=== PATIENT | male | born 1955 | race Caucasian/White ===

== ENCOUNTER 2018-04-28 15:52 | Emergency (ER) | payer SELFPAY ==
[2018-04-28] MEDS ORDERED: ONDANSETRON 4 MG/2 ML VIAL ONE (16:01)
[2018-04-28] MEDS ORDERED: FENTANYL CITR 100 MCG/2 ML ONE (16:01)
[2018-04-28 16:16] LABS: Absolute Lymphocytes (CBC) 2.8 K/uL (0.7-4.9); Absolute Monocytes 0.9 K/uL (0.1-1.3); Absolute Neutrophil 10.3 K/uL (1.8-8.0); Basophils % 0.4 % (0-1.3); Eosinophils % 0.7 % (0-4.4); Hematocrit 45.4 % (39.6-49.0); Lymphocytes % 19.5 % (15.3-44.8); MCH 32.1 pg (27.0-35.0); MCV 94.3 fL (80-100); MPV 7.9 fL (7.6-11.3); Monocytes % 6.6 % (3.3-12.3); RBC Red Blood Cell Count 4.81 M/uL (4.33-5.43)
[2018-04-28 16:38] LABS: Bilirubin Direct 0.1 mg/dL (0-0.2); Bilirubin Total 0.5 mg/dL (0.3-1.2); Magnesium 1.7 mg/dL (1.8-2.5); Protein, Total 7.1 g/dL (6.0-8.3)
[2018-04-28 16:41] LABS: CKMB Creatine Kinase MB 3.1 ng/ml (0.3-4.0)
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
--- NOTE | 2018-04-28 17:00 | EKG ---
Test Date: 2018-04-28 Test Time: 16:29:22 Machine I Cutter: LENO MEASUREMENT RESULTS: Intervals: Rate: 91 [place]: 146 QRSD: 76 QT: 370 QTc: 455 [place]: P: 43 [place]: 146 QRS: 14 T: 60 INTERPRETIVE STATEMENTS: Normal sinus rhythm Anteroseptal infarct, age undetermined Abnormal ECG No previous ECG available for comparison Electronically Signed On 04-28-18 16:59:43 CDT by Nazario Bowers
[2018-04-28] MEDS ORDERED: NA CHLORIDE 0.9% 2,000 ML ONE (17:20)
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
== END 2018-04-28 17:44 | disposition short-term general hospital (02) ==
LOC: EDBD 15:52 → ER 15:52
DX: S32.810A Multiple fractures of pelvis with stable disruption of pelvic ring, initial encounter for closed fracture (principal); S22.43XA Multiple fractures of ribs, bilateral, initial encounter for closed fracture; E83.42 Hypomagnesemia; X58.XXXA Exposure to other specified factors, initial encounter; Y93.89 Activity, other specified; Y92.9 Unspecified place or not applicable
CPT/HCPCS: 36415; 70450; 71045; 71260; 72125; 72170; 74177; 80048; 80076; 82550; 82553; 83690; 83735; 83880; 84484; 85025; 86850; 86900; 86901; 93005; 99285; J2405; J3010; J7030; Q9967

== ENCOUNTER 2021-01-06 11:51 | Inpatient (IN) | payer SELFPAY ==
[2021-01-06] MEDS ORDERED: IPRATROPIUM BROM 0.5MG/2.5ML ONE (12:33)
[2021-01-06] MEDS ORDERED: ALBUTEROL 2.5 MG/3 ML NEB SOL ONE (12:34)
[2021-01-06] MEDS ORDERED: dexAMETHasone 10 MG/ML VIAL ONE (12:44)
[2021-01-06 12:52] LABS: Basophils % 0.3 % (0-1.3); Hematocrit 41.7 % (39.6-49.0); Lymphocytes % 7.8 % (15.3-44.8); MPV 8.7 fL (7.6-11.3)
[2021-01-06 12:57] LABS: Protime INR 1.15
[2021-01-06 13:21] LABS: Albumin 2.8 g/dL (3.4-5.0); Bilirubin Direct 0.1 mg/dL (0-0.2); Bilirubin Total 0.4 mg/dL (0.2-1.0); Ferritin 1475.9 ng/mL (26-388); Potassium 4.1 mmol/L (3.5-5.1); Protein, Total 7.6 g/dL (6.4-8.2); Troponin (Emerg Dept Use Only) 0.08 ng/mL (0.0-0.045)
[2021-01-06 13:36] LABS: Blood Morphology Comment NOT SEEN (NOT SEEN); Platelet Estimate ADEQ; White Blood Cell Scan OK (OK)
[2021-01-06 13:38] LABS: SARS-COV-2 RT PCR POSITIVE (NEGATIVE)
--- NOTE | 2021-01-06 13:49 | RAD REPORT ---
EXAM DESCRIPTION: RAD - Chest Single View - 01/06/2021 1:30 pm CLINICAL HISTORY: Cough;Dyspnea Chest pain. COMPARISON: Chest Single View dated 04/28/2018 FINDINGS: Portable technique limits examination quality. Moderate patchy opacities in both lungs likely related to viral infection. The heart is normal in siz e. No displaced fractures.
--- NOTE | 2021-01-06 14:00 | RAD REPORT ---
EXAM DESCRIPTION: CT - Chest For Pe Angio - 01/06/2021 1:47 pm CLINICAL HISTORY: Chest pain. DYSPNEA COMPARISON: Head C Spine Cap W Con dated 04/28/2018 TECHNIQUE: CT angiogram of the pulmonary arteries was performed with MIP. All CT scans are performed using dose optimization technique as appropriate and may include automated exposure control or mA/KV adjustment according to patient size. FINDINGS: No evidence of pulmonary thromboembolism. No acute aortic finding demonstrated. Extensive alveolar and interstitial lung opacities are present throughout both lungs which may repres ent pulmonary edema or viral infection/ pneumonia. No significant pericardial or pleural fluid. No concerning bony finding. IMPRESSION: No evidence of pulmonary thromboembolism. Extensive bilateral alveolar and interstitial lung opacities are present which may be secondary to vi ral infection/ pneumonia or pulmonary edema.
--- NOTE | 2021-01-06 14:09 | EDPHYS ---
Physician Documentation [facility] Name: Yasmany Jaquez Age: 65 yrs Sex: Male : 1955 Arrival Date: 01/06/2021 Time: 11:52 Bed 2 Private MD: ED Physician Kieran Lewis HPI: 01/06 14:16 This 65 yrs old Male presents to ER via Wheelchair with complaints of kb Shortness Of Breath. 14:16 The patient has shortness of breath at rest. Onset: The symptoms/episode began/occurred kb 1 week(s) ago, and became worse today. Duration: The symptoms are continuous. The patient's shortness of breath is aggravated by nothing, is alleviated by application of supplemental oxygen. Associated signs and symptoms: Pertinent positives: non-productive cough, fever. Severity of symptoms: At their worst the symptoms were moderate in the emergency department the symptoms are unchanged. The patient has not experienced similar symptoms in the past. The patient has not recently seen a physician. 14:17 Pt started having shortness of breath and cough a week ago. Started Ivermectin, kb decadron and vitamins 5 days ago. Close family members recently had covid, but pt was not tested. shortness of breath worse today. Historical: - Allergies: 12:06 No Known Allergies; aa5 - Home Meds: 12:06 None [Active]; aa5 - PMHx: 12:06 None; aa5 - PSHx: 12:06 pelvis fracture; aa5 - Immunization history:: Adult Immunizations up to date. - Social history:: Smoking status: Patient denies any tobacco usage or history of. ROS: 14:15 Cardiovascular: Negative for chest pain, palpitations, and edema, Abdomen/GI: Negative kb for abdominal pain, nausea, vomiting, diarrhea, and constipation, Back: Negative for injury and pain, MS/Extremity: Negative for injury and deformity, Skin: Negative for injury, rash, and discoloration, Neuro: Negative for headache, weakness, numbness, tingling, and seizure. 14:15 Constitutional: Positive for fever, malaise. 14:15 Respiratory: Positive for cough, dyspnea on exertion, shortness of breath. Exam: 14:15 Head/Face: Normocephalic, atraumatic. Chest/axilla: Normal chest wall appearance and kb motion. Nontender with no deformity. No lesions are appreciated. Cardiovascular: Regular rate and rhythm with a normal S1 and S2. No gallops, murmurs, or rubs. Normal PMI, no JVD. No pulse deficits. Abdomen/GI: Soft, non-tender, with normal bowel sounds. No distension or tympany. No guarding or rebound. No evidence of tenderness throughout. Back: No spinal tenderness. No costovertebral tenderness. Full range of motion. Skin: Warm, dry with normal turgor. Normal color with no rashes, no lesions, and no evidence of cellulitis. MS/ Extremity: Pulses equal, no cyanosis. Neurovascular intact. Full, normal range of motion. Neuro: Awake and alert, GCS 15, oriented to person, place, time, and situation. Cranial nerves II-XII grossly intact. Motor strength 5/5 in all extremities. Sensory grossly intact. Cerebellar exam normal. Normal gait. 14:15 Respiratory: mild respiratory distress is noted, Respirations: labored breathing, that is moderate, Breath sounds: decreased breath sounds, that are mild, that are moderate, are located in both bases. Vital Signs: 11:57 BP 174 / 92; Pulse 116; Resp 40; Pulse Ox 81% on R/A; Weight 117.93 kg; Height 5 ft. 10 hb in. (177.80 cm); Pain 0/10; 13:30 BP 137 / 87; Pulse 108; Resp 25; Pulse Ox 92% on 3 lpm NC; jl7 14:00 BP 120 / 83; Pulse 106; Resp 30; Pulse Ox 94% on 2 lpm NC; hb 15:15 BP 117 / 76; Pulse 89; Resp 27; Pulse Ox 93% on 3 lpm NC; hb 16:23 Temp 98.6(O); dh3 16:30 BP 116 / 62; Pulse 93; Resp 26; Pulse Ox 94% on 3 lpm NC; hb 17:30 BP 142 / 91; Pulse 96; Resp 28; Pulse Ox 94% on 3 lpm NC; hb 18:25 BP 138 / 88; Pulse 94; Resp 27; Pulse Ox 90% 3 lpm ; hb 19:18 BP 94 / 60; Pulse 85; Resp 22; Pulse Ox 99% 3 lpm ; ea 19:30 BP 146 / 82; Pulse 82; Resp 26; Temp 98.3; Pulse Ox 97% 3 lpm ; mg2 11:57 Body Mass Index 37.30 (117.93 kg, 177.80 cm) hb MDM: 12:08 Patient medically screened. kb 13:44 Data reviewed: vital signs, nurses notes. Data interpreted: Pulse oximetry: on room air kb is 81 %. Interpretation: hypoxia. Plan: O2 by NC applied. ED course: Pt's oxygen sat 81% on room air, placed on 4L O2 via NC in triage and sats increased to 98-99%. 14:07 Counseling: I had a detailed discussion with the patient and/or guardian regarding: the kb historical points, exam findings, and any diagnostic results supporting the discharge/admit diagnosis, lab results, radiology results, the need for further work-up and treatment in the hospital. Physician consultation: Talia Delgado MD was contacted at 14:07, regarding admission, to the telemetry unit. patient's condition, and will see patient in ED. 14:14 ED course: Pt sitting on side of bed, breathing is less labored. Pt reports he is kb breathing easier. 01/06 12:15 Order name: Blood Culture Adult (2) kb 01/06 12:15 Order name: BMP kb 01/06 12:15 Order name: C-Reactive Protein kb 01/06 12:15 Order name: CBC with Diff kb 01/06 12:15 Order name: D-Dimer kb 01/06 12:15 Order name: Ferritin kb 01/06 12:15 Order name: Lactate; Complete Time: 13:07 kb 01/06 12:15 Order name: LFT's; Complete Time: 13:22 kb 01/06 12:15 Order name: Lipase; Complete Time: 13:22 kb 01/06 12:15 Order name: Procalcitonin; Complete Time: 13:23 kb 01/06 12:15 Order name: PT-INR; Complete Time: 13:00 kb 01/06 12:15 Order name: Ptt, Activated; Complete Time: 13:00 kb 01/06 12:15 Order name: Troponin (emerg Dept Use Only); Complete Time: 13:22 kb 01/06 12:15 Order name: CXR XRAY; Complete Time: 13:54 kb 01/06 12:15 Order name: Blood Culture EDMS 01/06 12:15 Order name: Basic Metabolic Panel; Complete Time: 13:22 EDMS 02 12:15 Order name: C-Reactive Protein; Complete Time: 13:22 EDMS 02 12:15 Order name: CBC with Automated Diff; Complete Time: 13:44 EDMS 01/06 12:15 Order name: D-Dimer; Complete Time: 13:00 EDMS 01/06 12:15 Order name: Ferritin; Complete Time: 13:22 EDMS 01/06 12:23 Order name: COVID-19 : Document "Date of Symptom Onset" if Symptomatic. kb 01/06 12:53 Order name: CBC Smear Scan; Complete Time: 13:44 EDMS 01/06 13:00 Order name: CT Chest For PE Angio; Complete Time: 14:01 kb 01/06 13:38 Order name: COVID-19/FLU A+B; Complete Time: 13:44 EDMS 01/06 14:18 Order name: COVID-19 Plasma EDMS 01/06 14:19 Order name: ABO/RH typing EDMS 01/06 16:19 Order name: Lactate Sepsis 2 HR Follow-up; Complete Time: 16:21 EDMS 01/06 12:15 Order name: EKG; Complete Time: 12:16 kb 01/06 12:15 Order name: Cardiac monitoring; Complete Time: 12:40 kb 01/06 12:15 Order name: Droplet/Contact Precautions; Complete Time: 12:41 kb 01/06 12:15 Order name: EKG - Nurse/Tech; Complete Time: 12:41 kb 01/06 12:15 Order name: IV Start; Complete Time: 12:41 kb 01/06 12:15 Order name: Labs collected and sent; Complete Time: 12:40 kb 01/06 12:15 Order name: O2 Per Protocol; Complete Time: 12:40 kb 01/06 12:15 Order name: O2 Sat Monitoring; Complete Time: 12:32 kb 01/06 13:44 Order name: Vital Signs; Complete Time: 13:47 kb 01/06 14:18 Order name: CONS Pharmacy Consult EDMS 01/06 14:18 Order name: CONS Physician Consult EDMS 01/06 14:18 Order name: Heart Healthy EDMS Administered Medications: 12:32 Drug: DuoNeb (3:1) (2.5 mg - 0.5 mg) 3 ml Route: Nebulizer; jl7 12:32 Drug: Decadron - Dexamethasone 10 mg Route: IVP; Site: left antecubital; jl7 Disposition: 01/06/21 14:08 Hospitalization ordered by Talia Delgado for Inpatient Admission. Preliminary diagnosis are Coronavirus infection, unspecified, Hypoxia, Viral pneumonia, unspecified. - Bed requested for Telemetry/MedSurg (Inpatient). - Status is Inpatient Admission. mg2 - Condition is Fair. - Problem is new. - Symptoms are unchanged. Addendum: 01/08/2021 14:33 Co-signature as Attending Physician, Kieran Lewis MD I agree with the assessment and k dr plan of care. Signatures: Dispatcher [employer] EDMS Eli Lopez, COTTON CLASSER AIDE-C COTTON CLASSER AIDE-Ckb Kieran Lewis MD MD [facility] Loreta Duncan RN RN aa5 Amna Sofia RN RN jl7 Elizabeth Magdaleno Michele, RN RN mg2 Corrections: (The following items were deleted from the chart) 01/06 12:50 12:24 CORONAVIRUS ordered. EDMS EDMS 12:51 12:16 Influenza Screen (A \\T\\ B)+BA.LAB.BRZ ordered. EDCA EDMS 18:22 14:08 Hospitalization Ordered by Talia Delgado MD for Inpatient Admission. Preliminary eb diagnosis is Coronavirus infection, unspecified; Hypoxia; Viral pneumonia, unspecified. Bed requested for Telemetry/MedSurg (Inpatient). Status is Inpatient Admission. Condition is Fair. Problem is new. Symptoms are unchanged. kb 19:31 18:22 01/06/2021 14:08 Hospitalization Ordered by Talia Delgado MD for Inpatient mg2 Admission. Preliminary diagnosis is Coronavirus infection, unspecified; Hypoxia; Viral pneumonia, unspecified. Bed requested for Telemetry/MedSurg (Inpatient). Status is Inpatient Admission. Condition is Fair. Problem is new. Symptoms are unchanged. eb
--- NOTE | 2021-01-06 14:09 | ER ---
Nurse's Notes [facility] Name: Yasmany Jaquez Age: 65 yrs Sex: Male : 1955 Arrival Date: 01/06/2021 Time: 11:52 Bed 2 Private MD: Diagnosis: Coronavirus infection, unspecified;Hypoxia;Viral pneumonia, unspecified Presentation: 01/06 11:57 Chief complaint: Patient states: shortness of breath for a week, getting worse. aa5 +exposure to COVID. Started decadron and ivermectin 5 days ago. fever last night. Coronavirus screen: congestion, cough unrelated to allergies, difficulty breathing, fever, Client presents with at least one sign or symptom that may indicate coronavirus-19. Standard/surgical mask placed on the client. Provider contacted for isolation considerations. Ebola Screen: Patient negative for fever greater than or equal to 101.5 degrees Fahrenheit, and additional compatible Ebola Virus Disease symptoms Patient denies exposure to infectious person. Patient denies travel to an Ebola-affected area in the 21 days before illness onset. No symptoms or risks identified at this time. Initial Sepsis Screen: Does the patient meet any 2 criteria? RR > 20 per min. HR > 90 bpm. Yes Does the patient have a suspected source of infection? No. Patient's initial sepsis screen is negative. Risk Assessment: Do you want to hurt yourself or someone else? Patient reports no desire to harm self or others. Onset of symptoms was December 30, 2020. 11:57 Method Of Arrival: Wheelchair aa5 11:57 Acuity: KATARINA 2 aa5 Historical: - Allergies: 12:06 No Known Allergies; aa5 - Home Meds: 12:06 None [Active]; aa5 - PMHx: 12:06 None; aa5 - PSHx: 12:06 pelvis fracture; aa5 - Immunization history:: Adult Immunizations up to date. - Social history:: Smoking status: Patient denies any tobacco usage or history of. Screenin:22 Abuse screen: Denies threats or abuse. Denies injuries from another. Nutritional hb screening: No deficits noted. Tuberculosis screening: No symptoms or risk factors identified. Fall Risk None identified. Assessment: 12:22 General: Appears distressed, Behavior is cooperative. Pain: Denies pain. Neuro: Level hb of Consciousness is awake, alert, obeys commands, Oriented to person, place, time, situation. Cardiovascular: Capillary refill < 3 seconds Patient's skin is warm and dry. Rhythm is sinus tachycardia. Respiratory: Reports shortness of breath at rest on exertion cough that is non-productive, Airway is patent Respiratory effort is labored, Respiratory pattern is tachypnea. GI: No signs and/or symptoms were reported involving the gastrointestinal system. : No signs and/or symptoms were reported regarding the genitourinary system. EENT: No signs and/or symptoms were reported regarding the EENT system. Derm: Skin is pink, warm \T\ dry. Musculoskeletal: No signs and/or symptoms reported regarding the musculoskeletal system. 13:00 Reassessment: No changes from previously documented assessment. Patient and/or family hb updated on plan of care and expected duration. Pain level reassessed. 14:00 Reassessment: No changes from previously documented assessment. Patient and/or family hb updated on plan of care and expected duration. Pain level reassessed. 15:15 Reassessment: No changes from previously documented assessment. Patient and/or family hb updated on plan of care and expected duration. Pain level reassessed. Admission ordered, awaiting room assignment at this time. 16:30 Reassessment: No changes from previously documented assessment. Patient and/or family hb updated on plan of care and expected duration. Pain level reassessed. 17:30 Reassessment: No changes from previously documented assessment. Patient and/or family hb updated on plan of care and expected duration. Pain level reassessed. 18:22 Reassessment: No changes from previously documented assessment. Patient and/or family hb updated on plan of care and expected duration. Pain level reassessed. 19:18 Reassessment: Patient and/or family updated on plan of care and expected duration. Pain ea level reassessed. Pt alert and oriented x 3. Remains on O2 at 3L per nasal cannula. Vital Signs: 11:57 BP 174 / 92; Pulse 116; Resp 40; Pulse Ox 81% on R/A; Weight 117.93 kg; Height 5 ft. 10 hb in. (177.80 cm); Pain 0/10; 13:30 BP 137 / 87; Pulse 108; Resp 25; Pulse Ox 92% on 3 lpm NC; jl7 14:00 BP 120 / 83; Pulse 106; Resp 30; Pulse Ox 94% on 2 lpm NC; hb 15:15 BP 117 / 76; Pulse 89; Resp 27; Pulse Ox 93% on 3 lpm NC; hb 16:23 Temp 98.6(O); dh3 16:30 BP 116 / 62; Pulse 93; Resp 26; Pulse Ox 94% on 3 lpm NC; hb 17:30 BP 142 / 91; Pulse 96; Resp 28; Pulse Ox 94% on 3 lpm NC; hb 18:25 BP 138 / 88; Pulse 94; Resp 27; Pulse Ox 90% 3 lpm ; hb 19:18 BP 94 / 60; Pulse 85; Resp 22; Pulse Ox 99% 3 lpm ; ea 19:30 BP 146 / 82; Pulse 82; Resp 26; Temp 98.3; Pulse Ox 97% 3 lpm ; mg2 11:57 Body Mass Index 37.30 (117.93 kg, 177.80 cm) hb ED Course: 11:52 Patient arrived in ED. ds1 12:05 Triage completed. aa5 12:08 [facility]C [facility] kb 12:08 Kieran Lewis MD is Attending Physician. kb 12:13 Amna Sofia RN is Primary Nurse. jl7 12:33 Inserted saline lock: 20 gauge in left antecubital area, using aseptic technique. Blood hb collected. 12:41 Patient has correct armband on for positive identification. Placed in gown. Bed in low hb position. Call light in reach. Side rails up X 1. 12:44 Arm band placed on. hb 13:30 CXR XRAY In Process Unspecified. EDMS 13:47 CT Chest For PE Angio In Process Unspecified. EDMS 14:00 Lupe Phillips, RN is Primary Nurse. jl7 14:08 Talia Delgado MD is Hospitalizing Provider. kb 19:19 No provider procedures requiring assistance completed. Patient admitted, IV remains in ea place. Administered Medications: 12:32 Drug: DuoNeb (3:1) (2.5 mg - 0.5 mg) 3 ml Route: Nebulizer; jl7 12:32 Drug: Decadron - Dexamethasone 10 mg Route: IVP; Site: left antecubital; jl7 Outcome: 14:08 Decision to Hospitalize by Provider. kb 19:19 Instructed on the need for admit. ea 19:31 Admitted to Tele accompanied by nurse, via wheelchair, room 415, with oxygen, with mg2 chart, Report called to MIKA Esposito 19:31 Condition: stable 19:31 Patient left the ED. mg2 Signatures: Dispatcher [employer] EDEli Mclean, WEB CONSULTANT-C WEB CONSULTANT-Ckelizabeth ViverosMartha ds1 Loreta Duncan, RN RN aa5 Lupe Phillips, RN RN Amna Jamison RN RN jl7 Darlin Singh 3 Ninfa Ortiz RN RN ea Gardose, Michele RN RN mg2 Corrections: (The following items were deleted from the chart) 14:04 11:57 BP 174 / 92; Pulse 116bpm; Resp 40bpm; Pulse Ox 81%; 117.93 kg; Height 5 ft. 10 hb in.; BMI: 37.3; Pain 0/10; aa5
[2021-01-06] MEDS ORDERED: ACETAMINOPHEN 500 MG TAB PO PRN (14:11)
[2021-01-06] MEDS ORDERED: MORPHINE 2 MG/ML SYR IV PRN (14:11)
[2021-01-06] MEDS ORDERED: ONDANSETRON 4 MG/2 ML VIAL IV PRN (14:11)
[2021-01-06] MEDS ORDERED: Remdesivir 200 MG in NA CHLORIDE 0.9% 250 ML IV ONE (15:00)
[2021-01-06] MEDS: NA CHLORIDE 0.9% 1,000 ML IV SCH ×2 (15:30→21:20)
[2021-01-06] MEDS ORDERED: NA CHLORIDE 0.9% 1,000 ML ONE (15:54)
[2021-01-06] MEDS: APIXABAN 5 MG TABLET PO SCH (21:19)
[2021-01-06] MEDS ORDERED: NA CHLORIDE 0.9% 250 ML ONE (23:53)
[2021-01-07] MEDS: METHYLPREDNISOLONE 125 MG INJ IV SCH ×4 (01:00→12:01)
[2021-01-07 04:08] LABS: Absolute Lymphocytes (CBC) 0.7 K/uL (0.7-4.9); Basophils % 0.4 % (0-1.3); Hematocrit 41.1 % (39.6-49.0); Lymphocytes % 7.7 % (15.3-44.8); MPV 8.9 fL (7.6-11.3); RBC Red Blood Cell Count 4.25 M/uL (4.33-5.43)
[2021-01-07 04:10] LABS: Protime INR 1.23
[2021-01-07 04:25] LABS: Albumin 2.7 g/dL (3.4-5.0); Bilirubin Direct 0.1 mg/dL (0-0.2); Bilirubin Total 0.4 mg/dL (0.2-1.0); Ferritin 1700.3 ng/mL (26-388); Potassium 4.7 mmol/L (3.5-5.1); Protein, Total 7.3 g/dL (6.4-8.2)
[2021-01-07] MEDS ORDERED: GLUCAGON 1 MG/VIAL IM PRN ×2 (04:39→10:16)
[2021-01-07] MEDS ORDERED: D50W 25 GM/50 ML SYRINGE IV PRN ×2 (04:39→10:16)
[2021-01-07] MEDS: INSULIN -REGULAR HUMAN 50 UNIT/0.5 ML ML SQ SCH ×4 (07:30→21:08)
[2021-01-07] MEDS: APIXABAN 5 MG TABLET PO SCH ×2 (08:18→21:07)
[2021-01-07] MEDS: Remdesivir 100 MG in NA CHLORIDE 0.9% 250 ML IV SCH (09:44)
--- NOTE | 2021-01-07 10:23 | P.HP ---
Certification for Inpatient Patient admitted to: Inpatient With expected LOS: >2 Midnights Patient will require the following post-hospital care: None Practitioner: I am a practitioner with admitting privileges, knowledge of patient current condition, hospital course, and medical plan of care. Services: Services provided to patient in accordance with Admission requirements found in Title 42 Section 412.3 of the Code of Federal Regulations Patient History Date of Service: 01/06/21 Reason for admission: COVID-19 pneumonia History of Present Illness: Patient is a 65-year-old gentleman who came to the hospital with COVID-19 pneumonia. Patient was diagnosed about a week ago. Patient's symptoms started about 12 days ago. Patient has had other family members who have been positive as well. Patient has been having coughing congestion and his dyspnea worsens. He was not doing better on oral medications ran decision was made to come into the emergency room for further evaluation. Patient has multiple comorbidities including hypertension, diabetes, obesity. Will continue with antiviral therapy. Patient is been many days out and will not do plasma at this time. Continue with steroid therapy and strict blood sugar control. Allergies No Known Allergies Allergy (Unverified 04/28/18 17:47) - Past Medical/Surgical History Has patient received pneumonia vaccine in the past: No Diabetic: No -: Hypertension -: Diabetes -: Obesity Past Surgical History: Patient denies surgical history - Social History Smoking Status: Never smoker Alcohol use: Yes CD- Drugs: No Caffeine use: Yes Place of Residence: Home Review of Systems 10-point ROS is otherwise unremarkable Physical Examination - Vital Signs Temperature: 97 F Blood Pressure: 126/73 Pulse: 89 Respirations: 24 Pulse Ox (%): 92 - Physical Exam General: Alert, In no apparent distress, Oriented x3 HEENT: Atraumatic, PERRLA, Mucous membr. moist/pink, EOMI, Sclerae nonicteric Neck: Supple, 2+ carotid pulse no bruit, No LAD, Without JVD or thyroid abnormality Respiratory: Diminished, Crackles/rales Cardiovascular: Regular rate/rhythm, Normal S1 S2, No murmurs Gastrointestinal: Normal bowel sounds, Soft and benign, Non-distended, No tenderness Musculoskeletal: No clubbing, No swelling, No tenderness Neurological: Normal gait, Normal speech, Normal strength at 5/5 x4 extr, Normal tone, Sensation intact, Cranial nerves 3-12 intact, Normal affect Lymphatics: No axilla or inguinal lymphadenopathy - Studies Laboratory Data (last 24 hrs) 01/06/21 12:33: PT 13.2 H, INR 1.15, APTT 25.9 01/06/21 12:33: WBC 13.10 H, Hgb 13.6, Hct 41.7, Plt Count 293 01/06/21 12:33: Sodium 134 L, Potassium 4.1, BUN 15, Creatinine 1.20, Glucose 332 H, Total Bilirubin 0.4, AST 44 H, ALT 58, Alkaline Phosphatase 76, Lipase 258 Assessment & Plan - Problems (Diagnosis) (1) Pneumonia due to COVID-19 virus Current Visit: Yes Status: Acute (2) Hypoxemia Current Visit: Yes Status: Acute (3) Hypertension Current Visit: Yes Status: Acute (4) Diabetes Current Visit: Yes Status: Acute (5) Obesity Current Visit: Yes Status: Acute - Plan 1. Continue with IV antiviral therapy 2. IV steroids 3. Repeat chest x-ray if symptoms are progressively worsening 4. O2 per protocol 5. Pulmonary consultation 6. Continue with albuterol inhaler therapy; 7. Strict blood pressure and blood sugar control 8. Monitor LFTs 9. Repeat labs including D-dimer, ferritin, and CRP and LFTs 10. GI and DVT prophylaxis Discharge Plan: Home Plan to discharge in: Greater than 2 days - Advance Directives Does patient have a Living Will: No Does patient have a Durable POA for Healthcare: No - Code Status/Comfort Care Code Status Assessed: Yes Code Status: Full Code Critical Care: No Time Spent Managing PTS Care (In Minutes): 45
--- NOTE | 2021-01-07 10:24 | P.PN ---
Subjective Date of Service: 01/07/21 Subjective: No new changes, No C/O voiced, Improving Patient feeling a little bit better when no new complaints. Review of Systems 10-point ROS is otherwise unremarkable Physical Examination - Vital Signs Temperature: 97 F Blood Pressure: 126/73 Pulse: 89 Respirations: 24 Pulse Ox (%): 92 - Physical Exam General: Alert, In no apparent distress, Oriented x3 HEENT: Atraumatic, PERRLA, EOMI Neck: Supple, JVD not distended Respiratory: Clear to auscultation bilaterally, Normal air movement Cardiovascular: Regular rate/rhythm, Normal S1 S2 Gastrointestinal: Normal bowel sounds, No tenderness Musculoskeletal: No tenderness Integumentary: No rashes Neurological: Normal speech, Normal tone, Normal affect Lymphatics: No axilla or inguinal lymphadenopathy - Studies Laboratory Data (last 24 hrs) 01/06/21 12:33: PT 13.2 H, INR 1.15, APTT 25.9 01/06/21 12:33: WBC 13.10 H, Hgb 13.6, Hct 41.7, Plt Count 293 01/06/21 12:33: Sodium 134 L, Potassium 4.1, BUN 15, Creatinine 1.20, Glucose 332 H, Total Bilirubin 0.4, AST 44 H, ALT 58, Alkaline Phosphatase 76, Lipase 258 Medications List Reviewed: Yes Assessment & Plan - Problems (Diagnosis) (1) Pneumonia due to COVID-19 virus Current Visit: Yes Status: Acute (2) Hypoxemia Current Visit: Yes Status: Acute (3) Hypertension Current Visit: Yes Status: Acute (4) Diabetes Current Visit: Yes Status: Acute (5) Obesity Current Visit: Yes Status: Acute - Plan Continue with plan of care as mentioned below 1. Continue with IV antiviral therapy 2. IV steroids; tapering dosage 3. Repeat chest x-ray if symptoms are progressively worsening 4. O2 per protocol 5. Pulmonary consultation 6. Continue with albuterol inhaler therapy; 7. Strict blood pressure and blood sugar control; added oral hypoglycemic agents and oral antihypertensive 8. Monitor LFTs 9. Monitor inflammatory markers 10. GI and DVT prophylaxis Discharge Plan: Home Plan to discharge in: Greater than 2 days - Advance Directives Does patient have a Living Will: No Does patient have a Durable POA for Healthcare: No - Code Status/Comfort Care Code Status: Full Code Critical Care: No Time Spent Managing PTS Care (In Minutes): 35
[2021-01-07] MEDS ORDERED: PNEUMOCOCCAL VACCINE 0.5 ML IMVAC ONE (12:00)
[2021-01-07] MEDS ORDERED: INFLUENZA VACCINE (for 3y+) 0.5 ML DOSE IMVAC ONE (12:00)
[2021-01-07] MEDS: INSULIN GLARGINE 100 UNITS/ML SQ SCH (12:26)
[2021-01-07] MEDS: INSULIN 70/30 100 UNITS/ML SQ SCH (12:27)
[2021-01-07] MEDS ORDERED: INSULIN 70/30 100 UNITS/ML SQ ONE (16:08)
[2021-01-07] MEDS ORDERED: NA CHLORIDE 0.9% 250 ML IV ONE (16:37)
[2021-01-08] MEDS: METHYLPREDNISOLONE 125 MG INJ IV SCH ×2 (01:00→08:03)
[2021-01-08 06:48] LABS: Absolute Lymphocytes (CBC) 0.9 K/uL (0.7-4.9); Basophils % 0.1 % (0-1.3); Hematocrit 38.2 % (39.6-49.0); Lymphocytes % 7.7 % (15.3-44.8); MPV 8.6 fL (7.6-11.3); RBC Red Blood Cell Count 4.06 M/uL (4.33-5.43)
[2021-01-08] MEDS: NA CHLORIDE 0.9% 1,000 ML IV SCH (07:00)
[2021-01-08] MEDS: INSULIN -REGULAR HUMAN 50 UNIT/0.5 ML ML SQ SCH ×4 (07:30→22:12)
[2021-01-08 07:34] LABS: Albumin 2.4 g/dL (3.4-5.0); Bilirubin Total 0.4 mg/dL (0.2-1.0); Ferritin 1953.2 ng/mL (26-388); Magnesium 2.6 mg/dL (1.8-2.4); Phosphorus 3.3 mg/dL (2.5-4.9); Potassium 4.5 mmol/L (3.5-5.1); Protein, Total 6.7 g/dL (6.4-8.2); Thyroid Stimulating Hormone 0.592 uIU/mL (0.360-3.740)
--- NOTE | 2021-01-08 07:56 | EKG ---
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
[2021-01-08] MEDS ORDERED: INSULIN 70/30 100 UNITS/ML SQ SCH (08:00)
[2021-01-08] MEDS: INSULIN GLARGINE 100 UNITS/ML SQ SCH (08:03)
[2021-01-08] MEDS: APIXABAN 5 MG TABLET PO SCH ×2 (08:03→22:12)
[2021-01-08] MEDS: INSULIN 70/30 100 UNITS/ML SQ SCH (08:05)
[2021-01-08] MEDS: Remdesivir 100 MG in NA CHLORIDE 0.9% 250 ML IV SCH (09:40)
[2021-01-08] MEDS ORDERED: INSULIN GLARGINE 100 UNITS/ML SQ SCH (10:16)
--- NOTE | 2021-01-08 11:46 | P.CNS ---
Date of Consult: 01/08/21 Reason for Consult: Pneumonia due to paiz virus Chief Complaint: COVID-19 pneumonia History of Present Illness: Patient is 65 years of age has been an diagnosed with paiz virus pneumonia about a week ago became progressively more short of breath and appeared in the emergency room currently doing well on couple of L of nasal cannula oxygen is not see a physician does not take any medications at home Allergies No Known Allergies Allergy (Unverified 04/28/18 17:47) - Past Medical/Surgical History Diabetic: No -: Hypertension -: Diabetes -: Obesity - Social History Alcohol use: Yes CD- Drugs: No Caffeine use: Yes Place of Residence: Home Review of Systems General: Weakness Respiratory: Shortness of Breath Physical Examination Temp Pulse Resp BP Pulse Ox 97.2 F 76 19 144/72 H 91 01/08/21 08:00 01/08/21 08:00 01/08/21 08:00 01/08/21 08:00 01/08/21 08:00 General: Alert, Oriented x3, Mild distress Neck: Supple Respiratory: Clear to auscultation bilaterally - Problems (1) Pneumonia due to COVID-19 virus Current Visit: Yes Status: Acute Plan: Patient is 65 years of age admitted with pneumonia due to paiz virus chest x- ray shows minimal changes oxygenation satisfactory on 3-4 L of nasal cannula oxygen patient's A1c is very high probably an underlying diabetes full multi vitamin support add metformin reduce dose of Solu-Medrol blood sugars elevated he is currently on insulin labs reviewed possible discharge tomorrow on oxygen with me in 2 weeks needs anticoagulation if possible
[2021-01-08] MEDS: ASCORBIC ACID 500 MG TABLET PO SCH ×2 (12:37→22:13)
[2021-01-08] MEDS ORDERED: IVERMECTIN 3 MG TABLET PO ONE (13:00)
[2021-01-08] MEDS: METFORMIN HCL 500 MG TAB PO SCH (16:11)
[2021-01-08] MEDS: GLIMEPIRIDE 2 MG TABLET PO SCH (17:50)
[2021-01-08] MEDS ORDERED: INSULIN 70/30 100 UNITS/ML SQ ONE (18:00)
[2021-01-08] MEDS: METHYLPREDNISOLONE 40 MG INJ IV SCH (22:13)
[2021-01-08] MEDS: THIAMINE HCL 100 MG TABLET PO SCH (22:13)
--- NOTE | 2021-01-09 03:26 | P.PN ---
Date of Service: 01/08/21 Subjective Subjective: Patient continues to improve with no new complaints Review of Systems 10-point ROS is otherwise unremarkable Physical Examination - Vital Signs Reviewed - Physical Exam General: Alert, In no apparent distress, Oriented x3 Respiratory: Clear to auscultation bilaterally, Normal air movement Cardiovascular: Regular rate/rhythm, Normal S1 S2 Gastrointestinal: Normal bowel sounds, No tenderness Neurological: Normal speech, Normal tone, Normal affect Assessment & Plan - Problems (Diagnosis) (1) Pneumonia due to COVID-19 virus Current Visit: Yes Status: Acute (2) Hypoxemia Current Visit: Yes Status: Acute (3) Hypertension Current Visit: Yes Status: Acute (4) Diabetes Current Visit: Yes Status: Acute (5) Obesity Current Visit: Yes Status: Acute - Plan Continue with plan of care as mentioned below 1. Continue with IV antiviral therapy; Patient completed dose 01/27 today. 2. IV steroids; tapering dosage; monitor inflammatory markers closely 3. Repeat chest x-ray if symptoms are progressively worsening 4. O2 per protocol 5. Pulmonary consultation Appreciated 6. Continue with albuterol inhaler therapy; 7. Strict blood pressure and blood sugar control; added oral hypoglycemic agents and oral antihypertensive; Increase Lantus to 50 units 8. Monitor LFTs 9. GI and DVT prophylaxis
[2021-01-09 04:21] LABS: Absolute Lymphocytes (CBC) 1.3 K/uL (0.7-4.9); Hematocrit 38.7 % (39.6-49.0); Lymphocytes % 12.7 % (15.3-44.8); MPV 8.4 fL (7.6-11.3); RBC Red Blood Cell Count 4.07 M/uL (4.33-5.43)
[2021-01-09 04:41] LABS: Albumin 2.4 g/dL (3.4-5.0); Bilirubin Total 0.4 mg/dL (0.2-1.0); C-Reactive Protein 63.5 mg/L (<3.00); Ferritin 1478.8 ng/mL (26-388); Magnesium 2.4 mg/dL (1.8-2.4); Potassium 4.9 mmol/L (3.5-5.1); Protein, Total 6.7 g/dL (6.4-8.2)
[2021-01-09] MEDS: INSULIN -REGULAR HUMAN 50 UNIT/0.5 ML ML SQ SCH ×4 (07:30→22:07)
[2021-01-09] MEDS: Remdesivir 100 MG in NA CHLORIDE 0.9% 250 ML IV SCH (08:44)
[2021-01-09] MEDS: METFORMIN HCL 500 MG TAB PO SCH ×2 (08:46→16:29)
[2021-01-09] MEDS: ASCORBIC ACID 500 MG TABLET PO SCH ×3 (08:46→22:11)
[2021-01-09] MEDS: APIXABAN 5 MG TABLET PO SCH ×2 (08:46→22:11)
[2021-01-09] MEDS: ZINC SULFATE 220 MG CAP PO SCH (08:46)
[2021-01-09] MEDS: VITAMIN D 1000 UNIT TAB PO SCH (08:46)
[2021-01-09] MEDS: METHYLPREDNISOLONE 40 MG INJ IV SCH ×2 (08:47→22:10)
[2021-01-09] MEDS: THIAMINE HCL 100 MG TABLET PO SCH ×2 (08:47→22:11)
[2021-01-09] MEDS: GLIMEPIRIDE 2 MG TABLET PO SCH ×2 (08:47→16:30)
[2021-01-09] MEDS: INSULIN GLARGINE 100 UNITS/ML SQ SCH (08:47)
--- NOTE | 2021-01-09 11:43 | P.PN ---
Subjective Date of Service: 01/09/21 Primary Care Provider: none Chief Complaint: COVID-19 pneumonia Subjective: Improving, Doing well Physical Examination - Vital Signs Temperature: 97.5 F Blood Pressure: 138/78 Pulse: 73 Respirations: 28 Pulse Ox (%): 73 - Studies Medications List Reviewed: Yes Assessment & Plan Discharge Plan: Home Plan to discharge in: 24 Hours Physician Review Additional Text: Physical exam: Patient improved. Patient without significant distress. Currently on 4 L per nasal cannula. Heart: Regular rhythm Lungs: Patient on 4 L per nasal cannula. No distress noted. Abdomen: Soft Extremities: Good range of motion to the upper and lower extremities. No focal deficits noted. Impression: Shortness of breast secondary to bilateral COVID 19 pneumonia with hypoxia Diabetes mellitus type 2 with hyperglycemia Obesity, BMI 38 Plan: Shortness of breast secondary to bilateral COVID 19 pneumonia with hypoxia: Continue IV Solu-Medrol,Remdesivir, and supplementation. Continue to wean off oxygen. Encourage ambulation. Encourage incentive spirometer. Encourage Proning. Currently on 4 L per nasal cannula. Arrange for home oxygen for tomorrow. Anticipate improvement over the next 24 hr with likely discharge tomorrow. Diabetes mellitus type 2 with hyperglycemia: Continue with metformin. Patient also on Lantus. Patient will likely continue with both medications at discharge. Diabetic education will need to be provided. Obesity, BMI 38: Continue with lifestyle modification education. Time Spent Managing Pts Care (In Minutes): 55
[2021-01-09] MEDS ORDERED: D50W 25 GM/50 ML VIAL IV PRN (16:00)
[2021-01-10] MEDS: INSULIN -REGULAR HUMAN 50 UNIT/0.5 ML ML SQ SCH ×4 (07:30→21:00)
[2021-01-10] MEDS: Remdesivir 100 MG in NA CHLORIDE 0.9% 250 ML IV SCH (09:00)
[2021-01-10] MEDS: INSULIN GLARGINE 100 UNITS/ML SQ SCH (09:00)
[2021-01-10] MEDS: ZINC SULFATE 220 MG CAP PO SCH (09:47)
[2021-01-10] MEDS: THIAMINE HCL 100 MG TABLET PO SCH ×2 (09:47→21:00)
[2021-01-10] MEDS: VITAMIN D 1000 UNIT TAB PO SCH (09:47)
[2021-01-10] MEDS: METFORMIN HCL 500 MG TAB PO SCH ×2 (09:48→17:31)
[2021-01-10] MEDS: GLIMEPIRIDE 2 MG TABLET PO SCH ×2 (09:48→17:31)
[2021-01-10] MEDS: METHYLPREDNISOLONE 40 MG INJ IV SCH ×2 (09:48→21:00)
[2021-01-10] MEDS: ASCORBIC ACID 500 MG TABLET PO SCH ×3 (09:48→21:00)
[2021-01-10] MEDS: APIXABAN 5 MG TABLET PO SCH ×2 (10:52→21:00)
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
[2021-01-11] MEDS: VITAMIN D 1000 UNIT TAB PO SCH (08:39)
[2021-01-11] MEDS: THIAMINE HCL 100 MG TABLET PO SCH ×2 (08:39→20:36)
[2021-01-11] MEDS: ZINC SULFATE 220 MG CAP PO SCH (08:41)
[2021-01-11] MEDS: METFORMIN HCL 500 MG TAB PO SCH ×2 (08:41→16:44)
[2021-01-11] MEDS: ASCORBIC ACID 500 MG TABLET PO SCH ×3 (08:41→20:38)
[2021-01-11] MEDS: METHYLPREDNISOLONE 40 MG INJ IV SCH ×2 (08:41→20:36)
[2021-01-11] MEDS: GLIMEPIRIDE 2 MG TABLET PO SCH ×2 (08:41→16:44)
[2021-01-11] MEDS: INSULIN -REGULAR HUMAN 50 UNIT/0.5 ML ML SQ SCH ×4 (08:41→20:35)
[2021-01-11] MEDS: APIXABAN 2.5 MG TABLET PO SCH ×2 (08:41→20:37)
[2021-01-11] MEDS: INSULIN GLARGINE 100 UNITS/ML SQ SCH (08:42)
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
[2021-01-12 05:19] VITALS: BMI 36.9
[2021-01-12] MEDS: INSULIN -REGULAR HUMAN 50 UNIT/0.5 ML ML SQ SCH ×4 (07:30→21:06)
[2021-01-12] MEDS: VITAMIN D 1000 UNIT TAB PO SCH (09:24)
[2021-01-12] MEDS: METHYLPREDNISOLONE 40 MG INJ IV SCH ×2 (09:25→21:08)
[2021-01-12] MEDS: THIAMINE HCL 100 MG TABLET PO SCH ×2 (09:25→21:07)
[2021-01-12] MEDS: ZINC SULFATE 220 MG CAP PO SCH (09:25)
[2021-01-12] MEDS: GLIMEPIRIDE 2 MG TABLET PO SCH ×2 (09:25→17:52)
[2021-01-12] MEDS: ASCORBIC ACID 500 MG TABLET PO SCH ×3 (09:26→21:08)
[2021-01-12] MEDS: INSULIN GLARGINE 100 UNITS/ML SQ SCH (09:26)
[2021-01-12] MEDS: APIXABAN 2.5 MG TABLET PO SCH ×2 (09:26→21:07)
[2021-01-12] MEDS: METFORMIN HCL 500 MG TAB PO SCH ×2 (09:26→17:52)
--- NOTE | 2021-01-12 15:22 | P.DS ---
Admission Date: 01/06/21 Discharge Date: 01/12/21 Primary Care Provider: none Disposition: ROUTINE DISCHARGE Discharge Condition: GOOD Reason for Admission: COVID-19 pneumonia Consultations: Pulmonary-Dr. Greenwood Procedures: COVID: Positive Influenza: Negative CT scan: FINDINGS: No evidence of pulmonary thromboembolism. No acute aortic finding demonstrated. Extensive alveolar and interstitial lung opacities are present throughout both lungs which may represent pulmonary edema or viral infection/ pneumonia. No significant pericardial or pleural fluid. No concerning bony finding. IMPRESSION: No evidence of pulmonary thromboembolism. Extensive bilateral alveolar and interstitial lung opacities are present which may be secondary to viral infection/ pneumonia or pulmonary edema. Medical Problem List: Shortness of breath secondary to bilateral COVID 19 pneumonia with hypoxia New Diabetes mellitus type 2 with hyperglycemia Obesity, BMI 38 Brief History of Present Illness: 65-year-old male presented with increasing shortness of breath. Patient had been recently diagnosis with COVID19. His symptoms did not improve. Patient found to be hypoxic. CT scan revealed moderate bilateral pneumonia related to COVID. Patient was admitted for further evaluation and treatment. Hospital Course: Patient presented with shortness of breath secondary to bilateral COVID 19 pneumonia with hypoxia. Patient had been recently diagnosed. Symptoms had worsened. Patient was admitted for treatment. Patient received IV Solu-Medrol, Remdesivir, and supplementation. His condition improved. Patient still requires oxygen. Patient stable on 3 L per nasal cannula. At discharge home oxygen will be arranged. At discharge he will continue with 3 L per nasal cannula to maintain sats above 93%. At discharge the patient will continue with prednisone 20 mg 1 pill twice daily for 7 days then 1 pill once daily for 7 days. The patient will also be provided Pro air 2 puffs 3 times a day as needed for shortness of breath and Tessalon Perles 100 mg 3 times a day as needed for cough. The patient will also continue with Eliquis 5 mg 1 pill twice daily due to risk of PE/DVT related to COVID. Education will be provided. The patient will continue with oral supplementation including zinc 220 mg daily, thiamine 100 mg 1 pill twice daily, vitamin-C 500 mg 3 times a day, vitamin-D 2000 units daily, and melatonin 5 mg daily. Recommend to follow up with pulmonology in 1 week. Pulmonology will further monitor and adjust his medication. Pulmonology will further wean off oxygen. Patient will continue with CDC guidelines on COVID 19 education and isolation. Patient will need to continue to isolate for at least 10 days. Recommend to continue proning, social distancing, face mask use, and hand washing. Recommend follow up with PCP in 1 week to monitor his care is well. Patient found to have be hyperglycemic. Patient with diabetes mellitus type 2. This is a new diagnosis. Blood sugar required insulin for better control. Hemoglobin A1c 9.6. At discharge patient will continue with Lantus 50 units subcu daily and metformin 1000 mg 1 pill twice daily. Recommend to monitor blood sugar at least twice daily. Recommend to maintain blood sugar less than 140 fasting and less than 200 after meals. Further adjustment in medication can be done by his PCP. Education on diabetes, Lantus and metformin will be provided. Recommend follow up with PCP in 1 week to further address his care. Lifestyle modification education provided. Vital Signs/Physical Exam: Temp Pulse Resp BP Pulse Ox 96.6 F L 71 18 129/70 94 01/12/21 12:00 01/12/21 12:00 01/12/21 12:00 01/12/21 12:00 01/12/21 12:00 General: Alert, In no apparent distress, Oriented x3, Cooperative HEENT: Atraumatic Neck: Supple Respiratory: Other (No respiratory distress noted. Good aeration bilateral currently on 3 L per nasal cannula) Cardiovascular: Normal pulses, Regular rate/rhythm Gastrointestinal: Normal bowel sounds, Soft and benign, Non-distended, No tenderness, No masses, No rebound, No guarding Neurological: Normal speech, Normal strength at 5/5 x4 extr, Normal tone, Normal affect Laboratory Data at Discharge: WBC 10.50 K/uL (4.3-10.9) 01/09/21 03:41 Hgb 13.0 g/dL (13.6-17.9) L 01/09/21 03:41 Hct 38.7 % (39.6-49.0) L 01/09/21 03:41 Plt Count 369 K/uL (152-406) 01/09/21 03:41 PT 14.2 SECONDS (9.5-12.5) H 01/07/21 03:42 INR 1.23 01/07/21 03:42 APTT 26.2 SECONDS (24.3-36.9) 01/07/21 03:42 Sodium 141 mmol/L (136-145) 01/09/21 03:41 Potassium 4.9 mmol/L (3.5-5.1) 01/09/21 03:41 BUN 24 mg/dL (7-18) H 01/09/21 03:41 Creatinine 0.92 mg/dL (0.55-1.3) 01/09/21 03:41 Glucose 219 mg/dL (74-106) H 01/09/21 03:41 Phosphorus 3.3 mg/dL (2.5-4.9) 01/08/21 06:25 Magnesium 2.4 mg/dL (1.8-2.4) 01/09/21 03:41 Total Bilirubin 0.4 mg/dL (0.2-1.0) 01/09/21 03:41 AST 24 U/L (15-37) 01/09/21 03:41 ALT 49 U/L (12-78) 01/09/21 03:41 Alkaline Phosphatase 69 U/L (45-117) 01/09/21 03:41 Triglycerides 217 mg/dL (<150) H 01/07/21 03:42 Cholesterol 175 mg/dL (<200) 01/07/21 03:42 HDL Cholesterol 25 mg/dL (40-60) L 01/07/21 03:42 Cholesterol/HDL Ratio 7.00 01/07/21 03:42 Lipase 258 U/L (73-393) 01/06/21 12:33 Home Medications: Albuterol Sulfate [Proair Hfa] 2 puff IH TID PRN #1 hfa.aer.ad 01/12/21 Apixaban [Eliquis] 5 mg PO BID #60 tablet 01/12/21 Ascorbic Acid [Vitamin C*] 500 mg PO TID #90 tablet 01/12/21 Benzonatate [Tessalon Perle] 100 mg PO TID PRN #15 cap 01/12/21 Cholecalciferol (Vitamin D3) [Vitamin D 1000 Iu Tab*] 2,000 unit PO DAILY #60 tab 01/12/21 Insulin Glargine,Hum.rec.anlog [Lantus Solostar] 50 unit SQ DAILY #1 packet 01/12/21 Melatonin 5 mg PO BEDTIME #30 tablet 01/12/21 Metformin HCl 1,000 mg PO BID #60 tablet 01/12/21 Thiamine HCl [Vitamin B-1*] 100 mg PO BID #60 tablet 01/12/21 Zinc Sulfate [Zinc Sulfate*] 220 mg PO DAILY #30 cap 01/12/21 New Medications: Apixaban [Eliquis] 5 mg PO BID #60 tablet Insulin Glargine,Hum.rec.anlog [Lantus Solostar] 50 unit SQ DAILY #1 packet Melatonin 5 mg PO BEDTIME #30 tablet Metformin HCl 1,000 mg PO BID #60 tablet Albuterol Sulfate [Proair Hfa] 2 puff IH TID PRN #1 hfa.aer.ad PRN Reason: Shortness Of Breath Benzonatate [Tessalon Perle] 100 mg PO TID PRN #15 cap PRN Reason: Cough Thiamine HCl [Vitamin B-1*] 100 mg PO BID #60 tablet Ascorbic Acid [Vitamin C*] 500 mg PO TID #90 tablet Cholecalciferol (Vitamin D3) [Vitamin D 1000 Iu Tab*] 2,000 unit PO DAILY #60 tab Zinc Sulfate [Zinc Sulfate*] 220 mg PO DAILY #30 cap Physician Discharge Instructions: Recommend follow up with PCP in 1 week to follow up this hospitalization. Patient presented with shortness of breath secondary to bilateral COVID 19 pneumonia with hypoxia. Patient had been recently diagnosed. Symptoms had worsened. Patient was admitted for treatment. Patient received IV Solu-Medrol, Remdesivir, and supplementation. His condition improved. Patient still requires oxygen. Patient stable on 3 L per nasal cannula. At discharge home oxygen will be arranged. At discharge he will continue with 3 L per nasal cannula to maintain sats above 93%. At discharge the patient will continue with prednisone 20 mg 1 pill twice daily for 7 days then 1 pill once daily for 7 da ys. The patient will also be provided Pro air 2 puffs 3 times a day as needed for shortness of breath and Tessalon Perles 100 mg 3 times a day as needed for cough. The patient will also continue with Eliquis 5 mg 1 pill twice daily due to risk of PE/DVT related to COVID. Education will be provided. The patient will continue with oral supplementation including zinc 220 mg daily, thiamine 100 mg 1 pill twice daily, vitamin-C 500 mg 3 times a day, vitamin-D 2000 units daily, and melatonin 5 mg daily. Recommend to follow up with pulmonology in 1 week. Pulmonology will further monitor and adjust his medication. Pulmonology will further wean off oxygen. Patient will continue with CDC guidelines on COVID 19 education and isolation. Patient will need to continue to isolate for at least 10 days. Recommend to continue proning, social distancing, face mask use, and hand washing. Recommend follow up with PCP in 1 week to monitor his care is well. Patient found to have be hyperglycemic. Patient with diabetes mellitus type 2. This is a new diagnosis. Blood sugar required insulin for better control. Hemoglobin A1c 9.6. At discharge patient will continue with Lantus 50 units subcu daily and metformin 1000 mg 1 pill twice daily. Recommend to monitor blood sugar at least twice daily. Recommend to maintain blood sugar less than 140 fasting and less than 200 after meals. Further adjustment in medication can be done by his PCP. Education on diabetes, Lantus and metformin will be provided. Recommend follow up with PCP in 1 week to further address his care. Lifestyle modification education provided. Diet: ADA Activity: Ad kendra Followup: NONE,NONE [Primary Care Provider] - Time spent managing pt's care (in minutes): 55
[2021-01-13] MEDS: INSULIN -REGULAR HUMAN 50 UNIT/0.5 ML ML SQ SCH ×3 (07:30→17:26)
[2021-01-13] MEDS ORDERED: APIXABAN 5 MG TABLET PO SCH (09:00)
[2021-01-13] MEDS: APIXABAN 2.5 MG TABLET PO SCH (09:00)
[2021-01-13] MEDS: THIAMINE HCL 100 MG TABLET PO SCH (09:50)
[2021-01-13] MEDS: ASCORBIC ACID 500 MG TABLET PO SCH ×2 (09:50→14:20)
[2021-01-13] MEDS: METHYLPREDNISOLONE 40 MG INJ IV SCH (09:50)
[2021-01-13] MEDS: METFORMIN HCL 500 MG TAB PO SCH ×2 (09:50→17:26)
[2021-01-13] MEDS: INSULIN GLARGINE 100 UNITS/ML SQ SCH (09:51)
[2021-01-13] MEDS: ZINC SULFATE 220 MG CAP PO SCH (09:51)
[2021-01-13] MEDS: GLIMEPIRIDE 2 MG TABLET PO SCH ×2 (09:51→17:26)
[2021-01-13] MEDS: VITAMIN D 1000 UNIT TAB PO SCH (09:51)
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
[2021-01-13 14:14] VITALS: O2SAT 95
[2021-01-13 17:16] VITALS: BP 137/93; TEMP 97
== END 2021-01-13 18:26 | disposition home or self-care (01) | DRG 177 ==
LOC: ER 11:51 → ERHOLD 14:30 → 4TH 19:44
PROVIDERS: ADMIT Hospitalist; ATTEND Family Medicine
PROC: XW033E5 Introduction of Remdesivir Anti-infective into Peripheral Vein, Percutaneous Approach, New Technology Group 5 (ICD-10-PCS; principal; 2021-01-06)
PROC: XW13325 Transfusion of Convalescent Plasma (Nonautologous) into Peripheral Vein, Percutaneous Approach, New Technology Group 5 (ICD-10-PCS; 2021-01-06)
DX: U07.1 COVID-19 (principal); J12.82 Pneumonia due to coronavirus disease 2019; I10 Essential (primary) hypertension; E11.65 Type 2 diabetes mellitus with hyperglycemia; E66.9 Obesity, unspecified; R09.02 Hypoxemia; Z68.38 Body mass index [BMI] 38.0-38.9, adult; Z79.01 Long term (current) use of anticoagulants; Z79.4 Long term (current) use of insulin; Z79.899 Other long term (current) drug therapy
CPT/HCPCS: 0240U; 36415; 71045; 71275; 80048; 80053; 80061; 80076; 82248; 82728; 82947; 83036; 83605; 83690; 83735; 83880; 84100; 84145; 84439; 84443; 84484; 85025; 85379; 85610; 85730; 86140; 86900; 86901; 86927; 87040; 93005; 96374; 99285; J1100; J1815; J2920; J2930; J7030; J7050; Q9967